=== PATIENT | female | born 1945 | race Native Hawaiian/Other Pacific Islander ===

== ENCOUNTER 2017-12-12 10:49 | Emergency (ER) | payer OTHER, MEDICARE ==
[~2017-12-12] VITALS: Ht 162.6 cm; Wt 62.6 kg
[2017-12-12] MEDS ORDERED: LISI5TAB10 PO (11:11)
[2017-12-12] MEDS ORDERED: CYCL10TA35 PO (11:12)
[2017-12-12] MEDS ORDERED: DIAZEPAM5 MG/M2 PO (11:12)
[2017-12-12] MEDS ORDERED: DONE5TAB PO (11:12)
[2017-12-12] MEDS ORDERED: DIVA250T2 PO (11:13)
[2017-12-12] MEDS ORDERED: SEROQUEL25 MG OR (11:13)
[2017-12-12] MEDS ORDERED: LEXAPRO10 MG PO (11:13)
== END 2017-12-12 14:00 | disposition other institution (70) ==
LOC: ED 10:49
DX: F32.89 Other specified depressive episodes (principal); Z04.6 Encounter for general psychiatric examination, requested by authority
CPT/HCPCS: 93005; 99283